=== PATIENT | female | born 1950 | race Caucasian/White ===

== ENCOUNTER 2017-09-08 18:37 | Emergency (ER) | payer MEDICARE, MEDICAID ==
[~2017-09-08] VITALS: Ht 160 cm; Wt 40.8 kg
[2017-09-08 19:38] LABS: ABSOLUTE BASOPHILS 0.1 thou/uL (0.0-0.2); ABSOLUTE EOSINOPHILS 0.1 thou/uL (0.0-0.7); ABSOLUTE LYMPHOCYTES 1.3 thou/uL (0.8-5.3); ABSOLUTE MONOCYTES 0.4 thou/uL (0.0-1.2); ABSOLUTE NEUTROPHILS 3.7 thou/uL (1.6-8.1); BASOPHILS 1.3 %; EOSINOPHILS 1.9 %; HEMATOCRIT 23.7 % (37.0-47.0); HEMOGLOBIN 8.2 gm/dL (12.0-15.0); LYMPHOCYTES 23.4 %; MCH 38.1 pg (26.0-34.0); MCHC 34.8 g/dL (28.0-37.0); MCV 109.5 fL (80.0-100.0); NUCLEATED RBCS 0 /100WBC; PLATELET COUNT* 196 thou/uL (150-400); POLYS 66.4 %; RBC 2.16 mil/uL (4.20-5.00); RDW-CV 17.6 % (10.5-14.5); WBC 5.5 thou/uL (4.0-11.0)
[2017-09-08 19:45] LABS: ANION GAP 6 mmol/L (7-16); BUN 4 mg/dL (7-18); CALCIUM 7.9 mg/dL (8.5-10.1); CHLORIDE 96 mmol/L (98-107); CO2 26 mmol/L (21-32); CREATININE 0.5 mg/dL (0.6-1.3); GLUCOSE 94 mg/dL (70-99); POTASSIUM 3.9 mmol/L (3.5-5.1); SODIUM 128 mmol/L (136-145)
[2017-09-08 19:56] LABS: URINE BILIRUBIN NEGATIVE (Negative); URINE BLOOD NEGATIVE (Negative); URINE COLOR YELLOW; URINE GLUCOSE-RANDOM NEGATIVE (Negative); URINE KETONES TRACE (Negative); URINE PROTEIN NEGATIVE (Negative); URINE SPECIFIC GRAVITY 1.015 (1.005-1.030); URINE UROBILINOGEN 0.2 E.U./dl (0.2-1.0)
[2017-09-08 19:57] LABS: URINE CLARITY HAZY; URINE LEUKOCYTES-REFLEX 2+ (Negative); URINE NITRITE-REFLEX POSITIVE (Negative)
[2017-09-08 20:02] LABS: ALBUMIN 2.7 g/dL (3.4-5.0); ALKALINE PHOSPHATASE 345 U/L (46-116); LIPASE 290 U/L (73-393); SGOT 69 U/L (15-37); SGPT 53 U/L (30-65); TOTAL BILIRUBIN 0.9 mg/dL (<0.1-1.0); TOTAL PROTEIN 5.8 g/dL (6.4-8.2); TROPONIN-I LEVEL <0.06 ng/mL (<0.06)
[2017-09-08 20:04] LABS: BACTERIA-REFLEX >30 Many /HPF (None Seen); CASTS None Seen /LPF (None Seen); SQUAMOUS 0-3 Few /LPF (0-3); URINE RBC None Seen /HPF (0-2); URINE WBC-REFLEX >25 Many /HPF (0-5)
[2017-09-08 20:05] LABS: AMP/METHAMP Negative (Negative); BARBITURATES Negative (Negative); BENZODIAZEPINES Negative (Negative); COCAINE Negative (Negative); CRYSTALS None Seen /LPF (None Seen); METHADONE Negative (Negative); OPIATES Negative (Negative); PCP Negative (Negative); THC Negative (Negative)
[2017-09-08 21:01] VITALS: BP 142/86
[2017-09-08] MEDS ORDERED: BACTRIM DS TAB1 EACH PO (21:04)
--- NOTE | 2017-09-09 12:50 | EKG ---
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
== END 2017-09-08 21:37 | disposition still patient (30) ==
LOC: M.ERS 18:37
PROVIDERS: Physician Assistant
DX: N39.0 Urinary tract infection, site not specified (principal); E87.1 Hypo-osmolality and hyponatremia; R60.9 Edema, unspecified; F10.120 Alcohol abuse with intoxication, uncomplicated; Z88.1 Allergy status to other antibiotic agents; Z88.0 Allergy status to penicillin; Z88.8 Allergy status to other drugs, medicaments and biological substances; Z98.890 Other specified postprocedural states

== ENCOUNTER 2017-09-10 20:42 | Inpatient (IN) | payer MEDICARE, MEDICAID ==
[~2017-09-10] VITALS: Ht 160 cm; Wt 49.0 kg
--- NOTE | ~2017-09-10 | PROC ---
[address] [address] PROCEDURE REPORT Name: MADI FLORES Room: [address]#: [id number] Admission: 09/10/17 Attend Phys: Kevin Emerson MD Discharge: 09/13/17 Date of : 50 Report #: [id number] THIS REPORT FOR: //name// For GI report, please see the Provation report in Perceptive 7 content. By: 1440Medical Records Staff ROYAL /SIL
[~2017-09-10 20:42] MED LIST: BACTRIM DS TAB1 EACH PO
[2017-09-10 20:45] VITALS: BP 156/88
[2017-09-10 21:38] LABS: ABSOLUTE EOSINOPHILS 0.1 thou/uL (0.0-0.7); ABSOLUTE LYMPHOCYTES 1.3 thou/uL (0.8-5.3); ABSOLUTE MONOCYTES 0.5 thou/uL (0.0-1.2); ABSOLUTE NEUTROPHILS 3.4 thou/uL (1.6-8.1); BASOPHILS 0.9 %; EOSINOPHILS 1.4 %; HEMATOCRIT 22.6 % (37.0-47.0); HEMOGLOBIN 7.8 gm/dL (12.0-15.0); LYMPHOCYTES 24.3 %; MCH 37.9 pg (26.0-34.0); MCHC 34.5 g/dL (28.0-37.0); MCV 109.9 fL (80.0-100.0); MONOCYTES 9.4 %; MPV 6.9 fl. (7.2-11.1); NUCLEATED RBCS 0 /100WBC; PLATELET COUNT* 189 thou/uL (150-400); RBC 2.05 mil/uL (4.20-5.00); RDW-CV 18.5 % (10.5-14.5); WBC 5.4 thou/uL (4.0-11.0)
[2017-09-10 21:48] LABS: ANION GAP 9 mmol/L (7-16); BUN 5 mg/dL (7-18); CALCIUM 7.9 mg/dL (8.5-10.1); CHLORIDE 96 mmol/L (98-107); CO2 25 mmol/L (21-32); CREATININE 0.5 mg/dL (0.6-1.3); GLUCOSE 110 mg/dL (70-99); POTASSIUM 4.1 mmol/L (3.5-5.1); SODIUM 130 mmol/L (136-145)
[2017-09-10 21:55] LABS: ALBUMIN 2.6 g/dL (3.4-5.0); ALKALINE PHOSPHATASE 303 U/L (46-116); SGOT 59 U/L (15-37); SGPT 44 U/L (30-65); TOTAL BILIRUBIN 0.8 mg/dL (<0.1-1.0); TOTAL PROTEIN 5.4 g/dL (6.4-8.2); TROPONIN-I LEVEL <0.06 ng/mL (<0.06)
[2017-09-10 22:19] LABS: PLATELET ESTIMATE ADEQUATE
[2017-09-10 22:20] LABS: ANISOCYTOSIS 1+
[2017-09-10 22:21] LABS: MACROCYTES 1+
[2017-09-10 22:22] LABS: MICROCYTES Occasional; POLYCHROMASIA Occasional
[2017-09-10 22:53] LABS: URINE BILIRUBIN NEGATIVE (Negative); URINE BLOOD NEGATIVE (Negative); URINE CLARITY CLEAR; URINE COLOR YELLOW; URINE GLUCOSE-RANDOM NEGATIVE (Negative); URINE KETONES NEGATIVE (Negative); URINE LEUKOCYTES-REFLEX 2+ (Negative); URINE NITRITE-REFLEX POSITIVE (Negative); URINE PROTEIN NEGATIVE (Negative); URINE UROBILINOGEN 0.2 E.U./dl (0.2-1.0)
[2017-09-10 23:00] LABS: BACTERIA-REFLEX >30 Many /HPF (None Seen); CASTS None Seen /LPF (None Seen); CRYSTALS None Seen /LPF (None Seen); MUCUS 0-3 Light strn/LPF (None Seen); SQUAMOUS 0-3 Few /LPF (0-3); URINE RBC 0-2 Rare /HPF (0-2); URINE WBC-REFLEX >25 Many /HPF (0-5); WBC CLUMPS Moderate (None Seen)
[2017-09-11 00:26] VITALS: BP 132/59
[2017-09-11 01:00] VITALS: BP 155/73
[2017-09-11 05:22] LABS: INR 1.1; PROTIME 10.7 Seconds (9.20-11.50)
[2017-09-11 05:36] LABS: MAGNESIUM 1.6 mg/dL (1.8-2.4); PHOSPHORUS* 3.2 mg/dL (2.5-4.9)
--- NOTE | 2017-09-11 06:14 | NUR ---
PT TO FLOOR AT 0045. A&O X4 CALM COOPERITVE. ADLIB. FLUIDS IN LEFT AC. RA. SR-ST ON THE MONITOR. VITALS WNL. HOURLY ROUNDING FOR SAFETY.
[2017-09-11 10:48] LABS: MCH 37.5 pg (26.0-34.0); MCHC 33.5 g/dL (28.0-37.0); MPV 7.7 fl. (7.2-11.1); NUCLEATED RBCS 0 /100WBC; PLATELET COUNT* 181 thou/uL (150-400); RBC 1.88 mil/uL (4.20-5.00); RDW-CV 19.1 % (10.5-14.5); WBC 4.8 thou/uL (4.0-11.0)
[2017-09-11 10:51] LABS: CALCIUM 7.3 mg/dL (8.5-10.1); CREATININE 0.5 mg/dL (0.6-1.3); POTASSIUM 4.1 mmol/L (3.5-5.1)
[2017-09-11 11:13] LABS: ABSOLUTE LYMPHOCYTES 0.6 thou/uL (0.8-5.3); ABSOLUTE MONOCYTES 0.4 thou/uL (0.0-1.2); ABSOLUTE NEUTROPHILS 3.8 thou/uL (1.6-8.1); ANISOCYTOSIS 2+; HYPOCHROMASIA 1+; MACROCYTES 2+; PLATELET ESTIMATE ADEQUATE; POIKILOCYTOSIS 1+; POLYCHROMASIA 1+
[2017-09-11 12:00] VITALS: BP 141/69
--- NOTE | 2017-09-11 12:07 | NUR ---
CM ASSESSMENT: Pt is A&O. Resides at home alone. Independent with ADLs, continues to cook and clean, Pt does not drive, Pt gets rides as needed. No DME. Hx of , "many years ago." Hx of [facility] in [place]. Pt's goal is to return home once medically stable. No needs anticipated. Following.
[2017-09-11 12:17] LABS: DIRECT BILIRUBIN 0.2 mg/dL (<0.1-0.3); TOTAL BILIRUBIN 0.6 mg/dL (<0.1-1.0); TOTAL PROTEIN 4.4 g/dL (6.4-8.2)
[2017-09-11 14:56] LABS: % SATURATION 27 % (20-39); IRON 56 ug/dL (50-175)
--- NOTE | 2017-09-11 15:37 | EKG ---
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 Johnson : 1950 Requested By: Juancarlos Caldwell Order Number: [id number] MD: Jr Carroll Measurements Intervals [place] Rate: 99 P: 76 MD: 156 QRS: -1 QRSD: 88 T: 48 QT: 336 QTc: 432 Interpretive Statements Sinus rhythm Low voltage, precordial leads Compared to ECG 09/08/2017 19:22:33 No significant changes Electronically Signed On 09-11-2017 15:37:42 MACHINE FILLER by Jr Carroll [email or web address] <ELECTRONICALLY SIGNED> By: Jr Carroll MD, [facility] 09/11/17 1537 36 36 Jr Carroll MD, [facility] /EPI
--- NOTE | 2017-09-11 15:45 | 2DMMODE ---
[place] [address] 2 D/M-MODE ECHOCARDIOGRAM Name: MADI FLORES Room: [address] IN [facility]#: [id number] Admission: 09/10/17 Attend Phys: Kevin Emerson, Discharge: Date of : 50 Date of Service: 09/11/17 1545 Report #: [id number] THIS REPORT FOR: //name// APPROVED REPORT Study performed: 09/11/2017 14:29:29 EXAM: Comprehensive 2D, Doppler, and color-flow Echocardiogram Patient Location: In-Patient Room #: [facility] Status: routine BSA: 1.42 HR: 94 bpm BP: 155/73 mmHg Rhythm: NSR Other Information Study Quality: Good Indications Hypertension/HDD edema 2D Dimensions LVEF(%): 79.26 (>50%) IVSd: 9.41 (7-11mm) LVOT Diam: 19.92 (18-24mm) LVDd: 43.89 mm PWd: 8.24 (7-11mm) Ascending Ao: 27.80 (22-36mm) LVDs: 22.98 (25-40mm) Aortic Root: 30.82 mm Ureña's LVEF: 79.26 % Volumes Left Atrial Volume (Systole) LA ESV Index: 23.10 mL/m2 Aortic Valve AoV Peak Wade.: 1.24 m/s AO Peak Gr.: 6.18 mmHg LVOT Max P.24 mmHg AO Mean Gr.: 3.64 mmHg LVOT Mean P.91 mmHg LVOT Max V: 1.03 m/s AO V2 VTI: 23.83 cm LVOT Mean V: 0.63 m/s ABIEL (VTI): 2.67 cm2 LVOT V1 VTI: 20.37 cm AI Yolo: 4.62 m/s2 AI PHT: 303.59 [place] [address] 2 D/M-MODE ECHOCARDIOGRAM Name: MADI FLORES Room: [address] IN .R.#: [id number] Admission: 09/10/17 Attend Phys: Kevin Emerson, Discharge: Date of : 50 Date of Service: 09/11/17 1545 Report #: [id number] Mitral Valve E/A Ratio: 1.22 MV Decel. Time: 147.11 ms MV E Max Wade.: 1.13 m/s MV PHT: 42.66 ms MVA (PHT): 5.16 cm2 TDI E/Lateral E': 7.53 E/Medial E': 8.69 Medial E' Wade.: 0.13 m/s Lateral E' Wade.: 0.15 m/s Pulmonary Valve PV Peak Wade.: 0.93 m/s PV Peak Gr.: 3.47 mmHg Tricuspid Valve TR Peak Gr.: 34.32 mmHg RVSP: 39.00 mmHg Left Ventricle The left ventricle is normal size. There is normal LV segmental wall motion. There is normal left ventricular wall thickness. Left ventricular systolic function is normal. LVEF is 65-70%. Transmitral Doppler flow pattern suggests impaired LV relaxation. Right Ventricle The right ventricle is normal size. The right ventricular systolic function is normal. Atria The left atrium size is normal. The right atrium size is normal. Aortic Valve The aortic valve is normal in structure. Moderate aortic regurgitation. There is no aortic valvular stenosis. Mitral Valve The mitral valve is normal in structure. Moderate mitral regurgitation. No evidence of mitral valve stenosis. Tricuspid Valve The tricuspid valve is normal in structure. Mild tricuspid regurgitation. The RVSP is 35-40 mmHg[place] [address] 2 D/M-MODE ECHOCARDIOGRAM Name: MADI FLORES Gabriela Room: [address] IN [facility]#: [id number] Admission: 09/10/17 Attend Phys: Kevin Emerson, Discharge: Date of : 50 Date of Service: 09/11/17 1545 Report #: [id number] The pulmonary valve is normal in structure. Mild pulmonic regurgitation. Great Vessels The aortic root is normal in size. IVC is normal in size and collapses with >50% inspiration Pericardium There is no pericardial effusion. <Conclusion> The left ventricle is normal size. There is normal left ventricular wall thickness. Left ventricular systolic function is normal. LVEF is 65-70%. Transmitral Doppler flow pattern suggests impaired LV relaxation. Moderate aortic regurgitation. Moderate mitral regurgitation. Mild tricuspid regurgitation. The RVSP is 35-40 mmHg. Mild pulmonic regurgitation. <ELECTRONICALLY SIGNED> By: Jr Carroll MD, FACC 09/11/17 1545 1545 1545 Jr Carroll MD, FACC /INF
[2017-09-11 16:00] VITALS: BP 135/80
--- NOTE | 2017-09-11 19:49 | NUR ---
ASSUMED PT CARE AT 0730, FULL ASSESMNET DONE CHARTED. PT A/O X4, VERY ANXIOUS AT TIMES. PT UP AD TEQUILA IN ROOM. ST MARIA G ON THE TR. PT DOING BOWEL PREP FOR COLONOSCOPY TOMORROW. SHE HAS HAD MULTIPLE LOOSE STOOLS, ALMOST CLEAR. PT USES CALL LIGHT FREQUENTLY. EDUCATED SEVERAL TIMES ON PLAN OF CARE. FALL PRECATUIONS IN PLACE. REPORT GIVEN TO TANI LEARY
[2017-09-11 20:10] VITALS: BP 126/68
[2017-09-12] VITALS (8 sets, daily range): BP systolic 121–162; BP diastolic 57–79
[2017-09-12 02:08] LABS: HEPATITIS B SURFACE AG Negative (Negative)
[2017-09-12 05:04] LABS: HEMATOCRIT 23.8 % (37.0-47.0); HEMOGLOBIN 7.9 gm/dL (12.0-15.0); MCH 37.4 pg (26.0-34.0); MCV 113.4 fL (80.0-100.0); MPV 7.3 fl. (7.2-11.1); RBC 2.1 mil/uL (4.20-5.00); RDW-CV 19.1 % (10.5-14.5); WBC 4.9 thou/uL (4.0-11.0)
--- NOTE | 2017-09-12 06:57 | NUR ---
A&O X4 CALM TYERE. RA. PATE ON THE MONITOR. ADLIB. NPO FOR TESTING. VITALS WNL. HOURLY ROUNDING FOR SAFETY.
--- NOTE | 2017-09-12 09:04 | NUR ---
ASSUMED PT CARE AT 0730, FULL ASSESMENT DONE CHARTED. PT A/O X4, VERY ANXIOUS, NPO FOR EGD TODAY. PT STATES STOMACH IS UPSET AND CRAMPING. PT C/O PAIN IN HEAD, REQUESTING TYLENOL. PT WANTS TO EAT. THINKS SHE HAS TOO MUCH SODIUM YESTERDAY AND THATS WHY LEGS ARE SWOLLEN. LEGS/FEET 2+ PITTING EDEMA BILAT. VSS, ST ON THE MONITOR. PT UP AD TEQUILA, FREQUENTLY AT THE NURSES STATION. CIWA DONE. FALL PRECATUIOINS IN PLACE. WILL CONTINUE WITH PLAN OF CAR.E
[2017-09-12] MEDS ORDERED: IRON325 PO (18:07)
[2017-09-12] MEDS ORDERED: MIRALAX17 GM PO (18:07)
[2017-09-12] MEDS ORDERED: PROCTOFOAM-HC 110 GM RECTAL (18:10)
[2017-09-12] MEDS ORDERED: PROTONIX40 M1 PO (18:11)
--- NOTE | 2017-09-12 18:13 | NUR ---
PT BACK TO ROOM FROM [facility] AT APPROX 1455. PT ABLE TO EAT REGULAR FOOD, ATTEMPTED TO CALL DR OVALLE TO FIND OUT IF OK FOR DC. DC ORDERS IN CHART FROM DR CHASE. DR OLMOS IN TO SEE PT THIS EVENING, STATES HE RECCOMENDS PT SEEK OUT PT TREATMENT FOR ANXIETY AND ALCOHOL USE. PT NEEDS MORE EDUCATION REGUARDING THIS.
--- NOTE | 2017-09-12 19:22 | NUR ---
SPOKE TO DR OVALLE RE:DISCHARGE, HE IS OK IF PT STAYS TONIGHT, SHE REPORTS STOMACH CRAMPING AND FEELING "OUT OF SORTS". PT EDUCATED THAT SHE CAN STAY TONIGHT AND SHE IS GOOD WITH THE PLAN. SHE IS RESTING IN ROOM AT THIS TIME
[2017-09-13] VITALS (7 sets, daily range): BP systolic 123–155; BP diastolic 53–90
[2017-09-13 05:23] LABS: HEMATOCRIT 23.7 % (37.0-47.0); HEMOGLOBIN 7.8 gm/dL (12.0-15.0); MCH 37.7 pg (26.0-34.0); MCV 114.2 fL (80.0-100.0); MPV 7.6 fl. (7.2-11.1); RBC 2.08 mil/uL (4.20-5.00); RDW-CV 19.6 % (10.5-14.5)
[2017-09-13 05:31] LABS: CALCIUM 7.4 mg/dL (8.5-10.1); CREATININE 0.4 mg/dL (0.6-1.3); MAGNESIUM 1.6 mg/dL (1.8-2.4); POTASSIUM 3.3 mmol/L (3.5-5.1)
--- NOTE | 2017-09-13 05:44 | NUR ---
PT IS ABLE TO COMMUNICATE HER NEEDS TO STAFF EFFECTIVELY. CURRENT PAIN MEDICATION REGIMEN HAS BEEN ADEQUATE FOR CONTROLLING HER PAIN UP TO THIS TIME. LEGS ELEVATED OVERNIGHT. POSSIBLE DISCHARGE LATER TODAY.
--- NOTE | 2017-09-13 08:00 | NUR ---
PT UP AD TEQUILA, IN HALLWAY. APPEARS ALERT O X 4, DENIES CHEST PAIN, SOB, PAIN OR DISCOMFORT. PACING UP HALLWAY WANTING TO D/C
[2017-09-13] MEDS ORDERED: LEVAQUIN 500 M500 M2 PO (13:00)
[2017-09-13] MEDS ORDERED: PRENATAL PO (13:00)
[2017-09-13] MEDS ORDERED: KLOR-CON 1010 MEQ PO (13:03)
[2017-09-13] MEDS ORDERED: LASIX 20 MG TAB20 MG PO (13:03)
[2017-09-13] MEDS ORDERED: LISINOPRIL10 MG PO (15:15)
--- NOTE | 2017-09-15 11:08 | S ---
[address] [address] SURGICAL PATH RPT PROCEDURE Name: SOLEDAD MENDES Room: [address] IN M.R.#: [id number] Admission: 09/10/17 Date of : 50 Discharge: 09/13/17 Report #: [id number] Path Case #: [id number] PATHOLOGY REPORT COLLECTION DATE: 09/12/2017 RECEIVED DATE: 09/12/2017 SUBMITTING PHYS: Dr. Nancy Garcia OTHER PHYS: Dr. Kevin Emerson SPECIMEN(S) RECEIVED: A.Duodenum B.Antrum C.Rectal polyp * * * * * * * * * * * * FINAL DIAGNOSIS: A. Duodenum "duodenum, biopsy": - No obvious diagnostic changes. - There is no evidence of acute cryptitis, granulomas, adenomatous change, sprue-like changes or malignancy. B. Gastric biopsy, antrum: - Mild chronic gastritis arising in the background of chronic reactive gastropathy. - The immunoperoxidase stains for Helicobacter pylori is negative. C. Colonic mucosa "rectal polyp biopsy": - Tubular adenoma. - There is no evidence of high-grade dysplasia or malignancy. (SHA:pit; 09/15/2017) PATHOLOGIST: Farhan Monzon M.D. REPORT ELECTRONICALLY SIGNED BY: Farhan Monzon M.D. DATE/TIME: 09/15/2017 11:08 * * * * * * * * * * * * GROSS PATHOLOGY: A. Received in formalin labeled "Soledad Mendes, duodenal biopsy," are 2 segments of alva soft tissue measuring 0.9 x 0.3 x 0.2 cm in aggregate dimensions and ranging from 0.4 to 0.5 cm in maximum dimension. The specimen is submitted entirely in cassette A1. B. Received in formalin labeled "Soledad Mendes, antral biopsy," is a segment of alva soft tissue measuring 0.4 cm in maximum dimension. The specimen is submitted entirely in cassette B1. C. Received in formalin labeled "Soledad Mendes, rectal polyp," is a segment of alva soft tissue measuring 0.7 cm in maximum dimension. The specimen is submitted entirely in cassette C1. (TSD; 09/12/2017) [place] [address] SURGICAL PATH RPT PROCEDURE Name: SOLEDAD MENDES Room: [address]#: [id number] Admission: 09/10/17 Date of : 50 Discharge: 09/13/17 Report #: [id number] Path Case #: [id number] CLINICAL HISTORY: Rule out celiac sprue INITIAL CPT CODE(S): A; 19812 B; 04608, 63547 C; 56658 Professional services performed by [facility] at [address] [address] Technical services performed by [facility] at [address] [place] [address], [address] [address]. [facility] [address] [place] [address] PHONE: [phone] DIRECTOR: Clovis Jameson M.D. * * * END OF REPORT * * *
--- NOTE | 2017-09-29 15:04 | CON ---
[address] [address] CONSULTATION Name: MADI FLORES Room: [address] IN M.R.#: [id number] Admission: 09/10/17 Attend Phys: Kevin Emerson MD Discharge: 09/13/17 Date of : 50 Report #: [id number] THIS REPORT FOR: //name// CC: [facility] physician/PCP Kevin Emerson DICTATED BY: Beverley Humphrey [facility] DATE OF SERVICE: 09/11/2017 The patient does not have a PCP. Please note at the time of this dictation, the patient was seen and physically examined by myself. REASON FOR CONSULTATION: Anemia and rectal bleeding. HISTORY OF PRESENT ILLNESS: This is a 67-year-old female who presented to the Emergency Room with increasing fatigue and noticing lower leg swelling, which has progressively gotten worse over the last 2 days. The patient states that she has also been feeling increased fatigue and just not having very much stamina that she is just feeling very weak and tired also that prompted her to come in. The patient reports that she does have some rectal bleeding, but she has hemorrhoids and has had some hard stool with that; however, she does mention that here lately her stool is kind of stringy and mucousy looking when she has a bowel movement. The patient states she did have EGD and colonoscopy several years ago at [facility] and we will need to obtain those records as soon as possible. She states normally her bowels move every day and she has no problems with that. She does not take anything for her bowels either. The patient does admit that she enjoys smoking and drinking and that she smokes 1-1/2 packs per day and she has 3 beers per day, which she states she has been doing only for the last 8 or 9 months. She defers that she has been drinking prior to that. ALLERGIES: PENICILLIN AND NEOMYCIN. MEDICATIONS: From home include none except a multivitamin. PAST MEDICAL HISTORY: Negative. PAST SURGICAL HISTORY: Tonsillectomy. FAMILY HISTORY: Negative for any GI or female cancers. SOCIAL HISTORY: Alcohol use daily, 3 beers; tobacco use, 1-1/2 to 2 packs per day and denies any illegal drug use. REVIEW OF SYSTEMS: Twelve-point review [place] [address] CONSULTATION Name: MADI FLORES Room: [address]#: [id number] Admission: 09/10/17 Attend Phys: Kevin Emerson MD Discharge: 09/13/17 Date of : 50 Report #: [id number] except what is mentioned in the HPI. PHYSICAL EXAMINATION: VITAL SIGNS: Temperature 36.4, pulse 100, respirations 19, blood pressure 155/73. HEART: Regular rate and rhythm. LUNGS: Diminished with coarse crackles throughout and a smoker's cough noted. ABDOMEN: Soft, positive bowel sounds in all 4 quadrants with no masses or tenderness noted. LABORATORY DATA: Hemoglobin on admission 7.8, she is now 7, hematocrit 21, white count 4.8, platelets 181, MCV is 112. Sodium 134, potassium 4.1, chloride 103, CO2 of 23, BUN is 5, creatinine is 0.5, GFR is 123 and glucose is 103. B12 was 689. TSH is 2.3. Folate was 15.1, PT 10.7 and INR was 1.1. Total bilirubin 0.8, alkaline phosphatase 303, ALT 44, AST 59. IMPRESSION: 1. Anemia, acute. 2. Rectal bleeding. 3. Elevated LFTs. 4. Fatigue. 5. Alcohol misuse. PLAN: 1. EGD and colonoscopy tomorrow. 2. We will obtain records from [facility]. 3. CT abdomen and pelvis is still pending. 4. Labs, ferritin, iron and TIBC and CBC in the a.m. GGTP still pending. 5. Further recommendations to be made once all of the above have been noted. Thank you for allowing us to participate in this patient's care. Please do not hesitate to call with any questions in regard to this consult. ADDENDUM The patient reports a long history of intermittent rectal bleeding, which she blames on her hemorrhoids. She presented with anemia with hemoglobin of 7.8. She reports that she had a colonoscopy before, but has not had an upper endoscopy. She denies any melena, abdominal pain, nausea, vomiting, dysphagia or odynophagia. We will go ahead and perform upper [place] [address] CONSULTATION Name: MADI FLORES Room: [address]#: [id number] Admission: 09/10/17 Attend Phys: Kevin Emerson MD Discharge: 09/13/17 Date of : 50 Report #: [id number] further investigate her anemia. We will make further recommendation after scopes are complete. <ELECTRONICALLY SIGNED> By: Nancy Garcia MD 09/29/17 1504 1320 1800Nancy Garcia MD /nt
--- NOTE | 2017-09-29 15:05 | CON ---
[address] [address] CONSULTATION Name: SANDRAMADI Gabriela Room: [address] M.R.#: [id number] Admission: 09/10/17 Attend Phys: Kevin Emerson MD Discharge: 09/13/17 Date of : 50 Report #: [id number] THIS REPORT FOR: //name// CC: [facility] physician/PCP Kevin Emerson DATE OF SERVICE: 09/11/2017 ADDENDUM This is an addendum to consult #[id number]. The patient reports a long history of intermittent rectal bleeding, which she blames on her hemorrhoids. She presented with anemia with hemoglobin of 7.8. She reports that she had a colonoscopy before, but has not had an upper endoscopy. She denies any melena, abdominal pain, nausea, vomiting, dysphagia or odynophagia. We will go ahead and perform upper and lower endoscopy to further investigate her anemia. We will make further recommendation after scopes are complete. <ELECTRONICALLY SIGNED> By: Nancy Garcia MD 09/29/17 1505 1341 [id number] Garcia MD /nt
== END 2017-09-13 16:32 | disposition home or self-care (01) | DRG 377 ==
LOC: M.ERS 20:42 → M.2W 23:34 → M.TBA-ER 23:34 → M.2W 09-11 00:16
PROVIDERS: Internal Medicine; Nurse Practitioner Adult Health; Personal Emergency Response Attendant; Physician Assistant; ADMIT Internal Medicine
PROC: B24BZZ4 Ultrasonography of Heart with Aorta, Transesophageal (ICD-10-PCS; principal; 2017-09-11)
PROC: 0DB98ZX Excision of Duodenum, Via Natural or Artificial Opening Endoscopic, Diagnostic (ICD-10-PCS; 2017-09-12)
PROC: 0DBP8ZX Excision of Rectum, Via Natural or Artificial Opening Endoscopic, Diagnostic (ICD-10-PCS; 2017-09-12)
PROC: 0DB68ZX Excision of Stomach, Via Natural or Artificial Opening Endoscopic, Diagnostic (ICD-10-PCS; 2017-09-12)
DX: K29.71 Gastritis, unspecified, with bleeding (principal); E43 Unspecified severe protein-calorie malnutrition; N30.00 Acute cystitis without hematuria; K44.9 Diaphragmatic hernia without obstruction or gangrene; K62.1 Rectal polyp; K64.4 Residual hemorrhoidal skin tags; K64.8 Other hemorrhoids; D50.9 Iron deficiency anemia, unspecified; I87.8 Other specified disorders of veins; M79.89 Other specified soft tissue disorders; M79.605 Pain in left leg; M79.604 Pain in right leg; Z96.642 Presence of left artificial hip joint; F17.210 Nicotine dependence, cigarettes, uncomplicated; Z88.0 Allergy status to penicillin; Z88.1 Allergy status to other antibiotic agents; Z88.8 Allergy status to other drugs, medicaments and biological substances; Z80.1 Family history of malignant neoplasm of trachea, bronchus and lung

== ENCOUNTER 2018-05-22 15:43 | Emergency (ER) | payer MEDICARE, MEDICAID ==
[~2018-05-22] VITALS: Ht 157.5 cm; Wt 43.1 kg
[~2018-05-22 15:43] MED LIST changes: +IRON325 PO; +KLOR-CON 1010 MEQ PO; +LASIX 20 MG TAB20 MG PO; +LEVAQUIN 500 M500 M2 PO; +LISINOPRIL10 MG PO; +MIRALAX17 GM PO; +PRENATAL PO; +PROCTOFOAM-HC 110 GM RECTAL; +PROTONIX40 M1 PO
[2018-05-22 17:02] LABS: ABSOLUTE EOSINOPHILS 0.1 thou/uL (0.0-0.7); ABSOLUTE LYMPHOCYTES 0.9 thou/uL (0.8-5.3); ABSOLUTE MONOCYTES 0.3 thou/uL (0.0-1.2); ABSOLUTE NEUTROPHILS 3.3 thou/uL (1.6-8.1); BASOPHILS 0.5 %; EOSINOPHILS 1.7 %; HEMATOCRIT 36.7 % (37.0-47.0); HEMOGLOBIN 12.9 gm/dL (12.0-15.0); LYMPHOCYTES 20.1 %; MCH 41.9 pg (26.0-34.0); MCV 119.6 fL (80.0-100.0); MONOCYTES 7.1 %; MPV 7.7 fl. (7.2-11.1); NUCLEATED RBCS 0 /100WBC; PLATELET COUNT* 177 thou/uL (150-400); POLYS 70.6 %; RBC 3.07 mil/uL (4.20-5.00); RDW-CV 12.4 % (10.5-14.5); WBC 4.7 thou/uL (4.0-11.0)
[2018-05-22 17:24] LABS: CALCIUM 8.6 mg/dL (8.5-10.1); CREATININE 0.4 mg/dL (0.6-1.3); POTASSIUM 3.6 mmol/L (3.5-5.1)
[2018-05-22 17:28] LABS: ALBUMIN 3.5 g/dL (3.4-5.0); TOTAL BILIRUBIN 0.4 mg/dL (<0.1-1.0); TOTAL PROTEIN 6.8 g/dL (6.4-8.2)
[2018-05-22] MEDS ORDERED: MOBIC15 MG PO (17:34)
[2018-05-22 17:38] LABS: MACROCYTES 2+
[2018-05-22 18:00] VITALS: BP 131/79
== END 2018-05-22 18:08 | disposition home or self-care (01) ==
LOC: M.ERS 15:43
PROVIDERS: Personal Emergency Response Attendant
DX: S32.89XA Fracture of other parts of pelvis, initial encounter for closed fracture (principal); S20.211A Contusion of right front wall of thorax, initial encounter; F17.210 Nicotine dependence, cigarettes, uncomplicated; Z88.1 Allergy status to other antibiotic agents; Z88.0 Allergy status to penicillin; Z88.8 Allergy status to other drugs, medicaments and biological substances; W17.89XA Other fall from one level to another, initial encounter; Y93.89 Activity, other specified; Y92.89 Other specified places as the place of occurrence of the external cause; Y99.8 Other external cause status